=== PATIENT | male | born 1925 ===

== ENCOUNTER 2017-08-04 07:41 | Outpatient (CLI) | payer OTHER ==
[~2017-08-04 07:41] MED LIST: GLUCOPHAGE XR500 MG PO; KETO10TA2 PO; LISINOPRIL20 MG; NORVASC10 MG
== END 2017-08-04 08:35 | disposition home or self-care (01) ==
LOC: LAB 07:41
DX: H25.89 Other age-related cataract (principal); Z98.41 Cataract extraction status, right eye

== ENCOUNTER 2017-08-04 10:05 | Outpatient (CLI) | payer OTHER | END 2017-08-04 10:30 | disposition home or self-care (01) | LOC: RAD 10:05 | DX: H25.011 Cortical age-related cataract, right eye (principal); Z98.41 Cataract extraction status, right eye ==